=== PATIENT | female | born 1990 | race American Indian/Alaskan Native ===

== ENCOUNTER 2017-08-18 23:48 | Inpatient (IN) | payer OTHER ==
--- NOTE | 2017-08-19 00:07 | HP ---
CIWA Score - CIWA Score Nausea/Vomitin-Mild Nausea/No Vomiting Muscle Tremors: 4-Moderate,w/Arms Extend Anxiety: 4-Mod. Anxious/Guarded Agitation: 3 Paroxysmal Sweats: No Perspiration Orientation: 0-Oriented Tacttile Disturbances: 0-None Auditory Disturbances: 0-None Visual Disturbances: 0-None Headache: 4-Moderately Severe CIWA-Ar Total Score: 16 Admission ROS S - HPI Chief Complaint: Alcohol withdrawal symptoms Allergies/Adverse Reactions: Allergies Allergy/AdvReac Type Severity Reaction Status Date / Time ibuprofen [From Motrin] Allergy Verified 08/19/17 02:01 APPLES Allergy Severe Difficulty Uncoded 08/19/17 02:01 Breathing History of Present Illness: 26 years old female with a long history of alcohol, cocaine and marijuana is admitted to detox. Patient has been in previous detox and reports 6 months of sobriety. She has medical history of asthma and Diabetes ( related , she states). Patient reports that she is not on any medication and does not monitor her blood sugar. She denies suicidal ideation. Exam Limitations: No Limitations - Ebola screening Have you traveled outside of the country in the last 21 days: No Have you had contact with anyone from an Ebola affected area: No Have you been sick,other than usual withdrawal symptoms: No Do you have a fever: No - Review of Systems Constitutional: Chills, Loss of Appetite, Malaise, Night Sweats EENT: reports: No Symptoms Reported Respiratory: reports: No Symptoms reported GI: reports: Nausea, Poor Appetite, Poor Fluid Intake, Abdominal cramping Integumentary: reports: Flushing, Sweating Neuro: reports: Headache, Tingling, Tremors Endocrine: reports: No Symptoms Reported Hematology: reports: No Symptoms Reported Psychiatric: reports: Judgement Intact, Mood/Affect Appropiate, Orientated x3 Other Systems: Reviewed and Negative Patient History - Patient Medical History Hx Anemia: No Hx Asthma: Yes Hx Chronic Obstructive Pulmonary Disease (COPD): No Hx Cancer: No Hx Cardiac Disorders: No Hx Congestive Heart Failure: No Hx Hypertension: No Hx Hypercholesterolemia: No Hx Pacemaker: No HX Cerebrovascular Accident: No Hx Seizures: No Hx Dementia: No Hx Diabetes: Yes (NO MEDS) Hx Gastrointestinal Disorders: No Hx Liver Disease: No Hx Genitourinary Disorders: No Hx Sexually Transmitted Disorders: No Hx Renal Disease (ESRD): No Hx Thyroid Disease: No Hx Human Immunodeficiency Virus (HIV): No (Negative 2016) Hx Hepatitis C: No (Negative 2016) Hx Depression: No Hx Suicide Attempt: No Hx Bipolar Disorder: No Hx Schizophrenia: No - Patient Surgical History Past Surgical History: Yes Hx Neurologic Surgery: No Hx Cataract Extraction: No Hx Cardiac Surgery: No Hx Lung Surgery: No Hx Breast Surgery: No Hx Breast Biopsy: No Hx Abdominal Surgery: No Hx Appendectomy: No Hx Cholecystectomy: No Hx Genitourinary Surgery: No Hx Section: Yes (2012, 2014) Hx Orthopedic Surgery: No Hx Hysterectomy: No Anesthesia Reaction: No - PPD History Previous Implant?: No PPD to be Administered?: Yes - Reproductive History Patient is a Female of Child Bearing Age (11 -55 yrs old): Yes Last Menstrual Period: 07/08/17 Patient : No - Smoking Cessation Smoking history: Never smoked Have you smoked in the past 12 months: Yes Aproximately how many cigarettes per day: 5 Hx Chewing Tobacco Use: No Initiated information on smoking cessation: Yes 'Breaking Loose' booklet given: 08/19/17 - Substance & Tx. History Hx Alcohol Use: Yes (Whisky) Hx Substance Use: Yes (Cocaine, marijuana) Substance Use Type: Alcohol, Cocaine, Marijuana Hx Substance Use Treatment: Yes - Substances Abused Alcohol Route: Oral Frequency: 1-2 times per week Amount used: 1/2 pint Age of first use: 14 Date of Last Use: 08/18/17 Marijuana/Hashish Route: Smoking Frequency: Daily Amount used: 5 blunts Age of first use: 14 Date of Last Use: 08/18/17 Cocaine Route: Inhalation Frequency: 1-2 times per week Amount used: 1 gram Age of first use: 17 Date of Last Use: 08/18/17 Family Disease History - Family Disease History Family Disease History: Heart Disease: Father (Heart attack -), Mother ( HTN, Asthma ), Respiratory: Mother Admission Physical Exam S - Vital Signs Vital Signs: Vital Signs - 24 hr 08/18/17 23:58 Temperature 98.1 F Pulse Rate 80 Respiratory 18 Rate Blood Pressure 130/78 - Physical General Appearance: Yes: Moderate Distress, Tremorous, Irritable, Sweating, Anxious HEENTM: Yes: Normal ENT Inspection, Normal Voice Respiratory: Yes: Lungs Clear, Normal Breath Sounds, No Respiratory Distress Neck: Yes: Supple Breast: Yes: Breast Exam Deferred Cardiology: Yes: Regular Rhythm, Regular Rate, S1, S2 Abdominal: Yes: Normal Bowel Sounds, Soft, Other (C- section surgical scar) Genitourinary: Yes: Within Normal Limits Back: Yes: Within Normal Limits Musculoskeletal: Yes: Back pain, Muscle Pain, Muscle weakness Extremities: Yes: Tremors, Swelling Neurological: Yes: Alert Integumentary: Yes: Dry Lymphatic: Yes: Within Normal Limits - Diagnostic (1) Alcohol dependence with uncomplicated withdrawal Current Visit: Yes Status: Chronic (2) Cannabis dependence, uncomplicated Current Visit: Yes Status: Chronic (3) Cocaine dependence, uncomplicated Current Visit: Yes Status: Chronic (4) Asthma Current Visit: Yes Status: Chronic (5) Diabetes Current Visit: No Status: Chronic Qualifiers: Diabetes mellitus type: type 2 Cleared for Admission [facility] - Detox or Rehab [facility] Level of Care: Medically Managed Detox Regimen/Protocol: Librium [facility] Breath Alcohol Content Breath Alcohol Content: 0 Urine Pregancy Test - Result Urine Test Results: Negative- NO Line Present Urine Drug Screen - Results Drug Screen Negative: No Urine Drug Screen Results: THC-Marijuana, BOROKS-Cocaine
[2017-08-19 00:08] VITALS: BMI 24.7
[2017-08-19] MEDS ORDERED: NICOTINE POLACRILEX 2 MG GUM BC PRN (00:25)
[2017-08-19] MEDS ORDERED: MAGNESIUM CITRATE 300 ML BOTTLE PO PRN (00:25)
[2017-08-19] MEDS ORDERED: MAG HYDROX/AL HYDROX/SIMETH 30 ML UNIT-DOSE CUP PO PRN (00:25)
[2017-08-19] MEDS ORDERED: MENTHOL/PHENOL 1 EACH UD MM PRN (00:25)
[2017-08-19] MEDS ORDERED: ACETAMINOPHEN 325 MG TABLET (FP) PO PRN (00:25)
[2017-08-19] MEDS ORDERED: LOPERAMIDE HCL 2 MG CAPSULE PO PRN (00:25)
[2017-08-19] MEDS ORDERED: guaiFENesin/D-METHORPHAN HB 10 ML UNIT-DOSE CUPS PO PRN (00:25)
[2017-08-19] MEDS ORDERED: MAGNESIUM HYDROX 2400MG/30ML ORAL SUSPENSION 30 ML CUP PO PRN (00:25)
[2017-08-19] MEDS ORDERED: chlordiazePOXIDE HCL 25 MG CAPSULE PO ONE (00:25)
[2017-08-19] MEDS ORDERED: P-EPHED 60MG/TRIPROLIDI 2.5MG TABLET PO PRN (00:25)
[2017-08-19] MEDS ORDERED: chlordiazePOXIDE HCL 25 MG CAPSULE PO PRN (00:25)
[2017-08-19] MEDS: chlordiazePOXIDE HCL 25 MG CAPSULE PO SCH ×4 (05:33→22:28)
[2017-08-19 09:55] LABS: URINE APPEARANCE SLCLOUDY; URINE BILIRUBIN NEGATIVE (NEGATIVE); URINE BLOOD NEGATIVE (NEGATIVE); URINE COLOR LTYELLOW; URINE GLUCOSE (UA) NEGATIVE (NEGATIVE); URINE KETONE NEGATIVE (NEGATIVE); URINE NITRITE NEGATIVE (NEGATIVE); URINE PROTEIN NEGATIVE (NEGATIVE); URINE UROBILINOGEN NEGATIVE mg/dL (0.2-1.0)
[2017-08-19 10:10] LABS: MEAN PLT VOLUME 8.6 fl (7.5-11.1)
[2017-08-19 10:12] LABS: MCH 29.5 pg (25.7-33.7); MEAN CELL VOLUME 86.8 fl (80-96); PLATELET COUNT 231 K/MM3 (134-434); RDW 13.9 % (11.6-15.6)
[2017-08-19 10:40] LABS: ALBUMIN 3.5 g/dl (3.4-5.0); ANION GAP 6 (8-16); BILIRUBIN,TOTAL 0.4 mg/dL (0.2-1.0); CALCIUM 8.3 mg/dL (8.5-10.1); CO2 24 mmol/L (21-32); CREATININE 0.5 mg/dL (0.55-1.02); GLUCOSE,RANDOM 89 mg/dL (74-106); SGOT/AST 9 U/L (15-37); TOT PROT 6.5 g/dl (6.4-8.2)
[2017-08-19] MEDS: PRENATAL VITAMINS W/ FOLIC ACID TABLET (FP) PO SCH (10:40)
[2017-08-19] MEDS: NICOTINE 14 MG/24 HOURS TOPICAL PATCH TD SCH (10:41)
[2017-08-19 10:49] LABS: ALK PHOS 47 U/L (45-117); SGPT/ALT 22 U/L (12-78)
[2017-08-19 12:34] LABS: HIV 1 & 2 AB NEGATIVE; HIV 1 AGp24 NEGATIVE
[2017-08-19 14:27] LABS: URINE LEUK ESTERASE TRACE (NEGATIVE)
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
[2017-08-19] MEDS: ZOLPIDEM TARTRATE 5 MG TABLET PO PRN (22:27)
[2017-08-19] MEDS: THIAMINE HCL 100 MG TABLET (FP) PO SCH (22:27)
[2017-08-20] MEDS: chlordiazePOXIDE HCL 25 MG CAPSULE PO SCH ×4 (05:41→22:31)
[2017-08-20] MEDS: PRENATAL VITAMINS W/ FOLIC ACID TABLET (FP) PO SCH (10:50)
[2017-08-20] MEDS: NICOTINE 14 MG/24 HOURS TOPICAL PATCH TD SCH (10:51)
[2017-08-20] MEDS ORDERED: ALBUTEROL SO4 18 GM HFA INHALER IH PRN ×3 (11:18→16:05)
--- NOTE | 2017-08-20 11:28 | PN ---
S CIWA - CIWA Score Nausea/Vomitin Muscle Tremors: 3 Anxiety: 3 Agitation: 2 Paroxysmal Sweats: 1-Minimal Palms Moist Orientation: 0-Oriented Tacttile Disturbances: 1-Very Mild Itch/Numbness Auditory Disturbances: 1-Very Mild Visual Disturbances: 0-None Headache: 2-Mild CIWA-Ar Total Score: 16 BHS Progress Note (SOAP) Subjective: alert,irritable,anxious,interrupted sleep,tremor,depress,history of ptsd Objective: 08/20/17 11:25 Vital Signs Temperature 98.2 F 08/20/17 09:53 Pulse Rate 92 H 08/20/17 09:53 Respiratory Rate 6 L 08/20/17 09:53 Blood Pressure 114/68 08/20/17 09:53 O2 Sat by Pulse Oximetry (%) 08/20/17 11:26 Laboratory Last Values WBC 6.0 K/mm3 (4.0-10.0) 08/19/17 07:45 RBC 4.47 M/mm3 (3.60-5.2) 08/19/17 07:45 Hgb 13.2 GM/dL (10.7-15.3) 08/19/17 07:45 Hct 38.8 % (32.4-45.2) 08/19/17 07:45 MCV 86.8 fl (80-96) 08/19/17 07:45 MCH 29.5 pg (25.7-33.7) 08/19/17 07:45 MCHC 34.0 g/dl (32.0-36.0) 08/19/17 07:45 RDW 13.9 % (11.6-15.6) 08/19/17 07:45 Plt Count 231 K/MM3 (134-434) 08/19/17 07:45 MPV 8.6 fl (7.5-11.1) D 08/19/17 07:45 Manual Slide Review No Result Required. 08/19/17 07:45 Sodium 140 mmol/L (136-145) 08/19/17 07:45 Potassium 3.7 mmol/L (3.5-5.1) 08/19/17 07:45 Chloride 110 mmol/L (98-107) H 08/19/17 07:45 Carbon Dioxide 24 mmol/L (21-32) 08/19/17 07:45 Anion Gap 6 (8-16) L 08/19/17 07:45 BUN 9 mg/dL (7-18) 08/19/17 07:45 Creatinine 0.5 mg/dL (0.55-1.02) L D 08/19/17 07:45 Creat Clearance w eGFR > 60 (>60) 08/19/17 07:45 POC Glucometer 100 UNITS (80-120) 08/20/17 06:43 Random Glucose 89 mg/dL (74-106) D 08/19/17 07:45 Calcium 8.3 mg/dL (8.5-10.1) L 08/19/17 07:45 Total Bilirubin 0.4 mg/dL (0.2-1.0) D 08/19/17 07:45 AST 9 U/L (15-37) L D 08/19/17 07:45 ALT 22 U/L (12-78) D 08/19/17 07:45 Alkaline Phosphatase 47 U/L (45-117) D 08/19/17 07:45 Total Protein 6.5 g/dl (6.4-8.2) 08/19/17 07:45 Albumin 3.5 g/dl (3.4-5.0) 08/19/17 07:45 Urine Color Ltyellow 08/19/17 08:25 Urine Appearance Slcloudy 08/19/17 08:25 Urine pH 6.0 (5.0-8.0) 08/19/17 08:25 Ur Specific [place] 1.013 (1.001-1.035) 08/19/17 08:25 Urine Protein Negative (NEGATIVE) 08/19/17 08:25 Urine Glucose (UA) Negative (NEGATIVE) 08/19/17 08:25 Urine Ketones Negative (NEGATIVE) 08/19/17 08:25 Urine Blood Negative (NEGATIVE) 08/19/17 08:25 Urine Nitrite Negative (NEGATIVE) 08/19/17 08:25 Urine Bilirubin Negative (NEGATIVE) 08/19/17 08:25 Urine Urobilinogen Negative mg/dL (0.2-1.0) 08/19/17 08:25 Ur Leukocyte Esterase Trace (NEGATIVE) H 08/19/17 08:25 HIV 1&2 Antibody Screen Negative 08/19/17 07:45 HIV P24 Antigen Negative 08/19/17 07:45 Assessment: 08/20/17 11:27 withdrawal symptom Plan: continue detox,psychiatric reevaluation
[2017-08-20] MEDS: ZOLPIDEM TARTRATE 5 MG TABLET PO PRN (22:29)
[2017-08-20] MEDS: THIAMINE HCL 100 MG TABLET (FP) PO SCH (22:29)
[2017-08-21] MEDS: chlordiazePOXIDE 5 MG CAPSULE PO SCH ×4 (05:45→22:45)
[2017-08-21] MEDS: PRENATAL VITAMINS W/ FOLIC ACID TABLET (FP) PO SCH (10:42)
[2017-08-21] MEDS: hydrOXYzine PAMOATE 50 MG CAPSULE (FP) PO PRN (10:44)
[2017-08-21] MEDS: NICOTINE 14 MG/24 HOURS TOPICAL PATCH TD SCH (10:45)
--- NOTE | 2017-08-21 11:46 | PN ---
[facility] CIWA - CIWA Score Nausea/Vomitin-No Nausea/No Vomiting Muscle Tremors: 4-Moderate,w/Arms Extend Anxiety: 4-Mod. Anxious/Guarded Agitation: 4-Moderately Restless Paroxysmal Sweats: 3 Orientation: 0-Oriented Tacttile Disturbances: 0-None Auditory Disturbances: 0-None Visual Disturbances: 0-None Headache: 0-None Present CIWA-Ar Total Score: 15 BHS Progress Note (SOAP) Subjective: agitation anxiety sweats chills depressed I need to see the psych Objective: 08/21/17 11:45 Vital Signs Temperature 98.1 F 08/21/17 09:41 Pulse Rate 99 H 08/21/17 09:41 Respiratory Rate 18 08/21/17 09:41 Blood Pressure 122/75 08/21/17 09:41 O2 Sat by Pulse Oximetry (%) Laboratory Tests 08/19/17 08/19/17 08/19/17 07:45 07:45 07:45 WBC 6.0 RBC 4.47 Hgb 13.2 Hct 38.8 MCV 86.8 MCH 29.5 MCHC 34.0 RDW 13.9 Plt Count 231 MPV 8.6 D Manual Slide Review No Result Required. Sodium 140 Potassium 3.7 Chloride 110 H Carbon Dioxide 24 Anion Gap 6 L BUN 9 Creatinine 0.5 L D Creat Clearance w eGFR > 60 POC Glucometer Random Glucose 89 D Calcium 8.3 L Total Bilirubin 0.4 D AST 9 L D ALT 22 D Alkaline Phosphatase 47 D Total Protein 6.5 Albumin 3.5 Urine Color Urine Appearance Urine pH Ur Specific [place] Urine Protein Urine Glucose (UA) Urine Ketones Urine Blood Urine Nitrite Urine Bilirubin Urine Urobilinogen Ur Leukocyte Esterase RPR Titer HIV 1&2 Antibody Screen Negative HIV P24 Antigen Negative 08/19/17 08/19/17 08/20/17 08:25 16:37 06:00 WBC RBC Hgb Hct MCV MCH MCHC RDW Plt Count MPV Manual Slide Review Sodium Potassium Chloride Carbon Dioxide Anion Gap BUN Creatinine Creat Clearance w eGFR POC Glucometer 81 Random Glucose Calcium Total Bilirubin AST ALT Alkaline Phosphatase Total Protein Albumin Urine Color Ltyellow Urine Appearance Slcloudy Urine pH 6.0 Ur Specific [place] 1.013 Urine Protein Negative Urine Glucose (UA) Negative Urine Ketones Negative Urine Blood Negative Urine Nitrite Negative Urine Bilirubin Negative Urine Urobilinogen Negative Ur Leukocyte Esterase Trace H RPR Titer Nonreactive HIV 1&2 Antibody Screen HIV P24 Antigen 08/20/17 08/20/17 08/21/17 06:43 16:32 06:17 WBC RBC Hgb Hct MCV MCH MCHC RDW Plt Count MPV Manual Slide Review Sodium Potassium Chloride Carbon Dioxide Anion Gap BUN Creatinine Creat Clearance w eGFR POC Glucometer 100 99 96 Random Glucose Calcium Total Bilirubin AST ALT Alkaline Phosphatase Total Protein Albumin Urine Color Urine Appearance Urine pH Ur Specific [place] Urine Protein Urine Glucose (UA) Urine Ketones Urine Blood Urine Nitrite Urine Bilirubin Urine Urobilinogen Ur Leukocyte Esterase RPR Titer HIV 1&2 Antibody Screen HIV P24 Antigen aaox3 ambulating no acute distress Assessment: 08/21/17 11:45 withdrawal sx Plan: continue detox increase fluids psych ordered
[2017-08-21] MEDS ORDERED: HALOPERIDOL 2 MG TABLET PO STA (13:51)
[2017-08-21] MEDS ORDERED: diphenhydrAMINE HCL 50 MG CAPSULE PO STA (13:52)
[2017-08-21] MEDS ORDERED: HALOPERIDOL 1 MG TABLET (FP) PO PRN (13:53)
--- NOTE | 2017-08-21 13:59 | PN ---
Psychiatric Progress Note Vital Signs: Vital Signs Period Temp Pulse Resp BP Sys/Tarn Pulse Ox Last 24 Hr 96.4 F-98.2 F 81-99 16-20 97-122/63-75 Date of Session: 08/21/17 Chief Complaint:: Paranoid ideation, agitation, anxiety HPI: Patent reports agitation, paranoid thoughts and irritability and asking for medical aids Current Medications: Active Medications Generic Name Dose Route Start Last Admin Trade Name Freq PRN Reason Stop Dose Admin Acetaminophen 650 mg 08/19/17 00:25 Tylenol - PO Q4H PRN FEVER OR PAIN Al Hydroxide/Mg Hydroxide 30 ml 08/19/17 00:25 Mylanta Oral Suspension - PO Q6H PRN DYSPEPSIA Albuterol Sulfate 2 puff 08/20/17 16:04 Ventolin Hfa Inhaler - IH Q4H PRN ASTHMA Chlordiazepoxide HCl 15 mg 08/21/17 05:00 08/21/17 10:43 Librium - PO 08/21/17 23:01 15 mg [id number] JULI Administration Chlordiazepoxide HCl 25 mg 08/19/17 00:25 Librium - PO 08/22/17 00:24 Q4H PRN WITHDRAWAL(CONT SUBST) Chlordiazepoxide HCl 10 mg 08/22/17 05:00 Librium - PO 08/22/17 23:01 [id number] JULI Diphenhydramine HCl 50 mg 08/21/17 13:52 Benadryl - PO 08/21/17 13:53 NOW STA Eucalyptus/Menthol/Phenol/Sorbitol 1 each 08/19/17 00:25 Cepastat Lozenge - MM Q4H PRN SORE THROAT Guaifenesin 10 ml 08/19/17 00:25 Robitussin Dm - PO Q6H PRN COUGH Haloperidol 2 mg 08/21/17 13:51 Haldol - PO 08/21/17 13:52 NOW STA Haloperidol 1 mg 08/21/17 13:53 Haldol - PO Q4HWA PRN AGITATION Hydroxyzine Pamoate 50 mg 08/19/17 00:25 08/21/17 10:44 Vistaril - PO 50 mg Q4H PRN Administration AGITATION Loperamide HCl 4 mg 08/19/17 00:25 Imodium - PO Q6H PRN DIARRHEA Magnesium Citrate 300 ml 08/19/17 00:25 Citroma - PO Q48H PRN CONSTIPATION Magnesium Hydroxide 30 ml 08/19/17 00:25 Milk Of Magnesia - PO DAILY PRN CONSTIPATION Nicotine 14 mg 08/19/17 10:00 08/21/17 10:45 Nicoderm Patch - TD Not Given DAILY JULI Nicotine Polacrilex 2 mg 08/19/17 00:25 Nicorette Gum - BC Q2H PRN NICOTINE REPLACEMENT RX Multivit/Folic Acid/Iron 1 tab 08/19/17 10:00 08/21/17 10:42 Vitamins (Sjr) - PO 1 tab DAILY JULI Administration Pseudoephedrine/Triprolidine 1 combo 08/19/17 00:25 Actifed - PO TID PRN NASAL CONGESTION Thiamine HCl 100 mg 08/19/17 22:00 08/20/17 22:29 Vitamin B1 - PO 100 mg HS JULI Administration Zolpidem Tartrate 10 mg 08/19/17 22:00 08/20/17 22:29 Ambien - PO 10 mg HS PRN Administration INSOMNIA Medication(s) Change(s): Haldol 2mg po stat. Benadryl 50mg po stat. Haldol 1mg po prn q4 for anxiety Mental Status Exam - Mental Status Exam Alert and Oriented to: Person Cognitive Function: Fair Patient Appearance: Unkempt Mood: Anxious Affect: Appropriate Patient Behavior: Cooperative Speech Pattern: Appropriate Voice Loudness: Normal Thought Process: Goal Oriented Thought Disorder: Being Controlled, Paranoid Ideation Hallucinations: Denies Suicidal Ideation: Denies Homicidal Ideation: Denies Insight/Judgement: Fair Sleep: Difficulty falling asleep Appetite: Weight gain Muscle strength/Tone: Normal Gait/Station: Normal Additional Comments: Haldol 2mg po stat. Benadryl 50mg po stat. Haldol 1mg po prn q4 for anxiety Psychiatric Treatment Plan - Problem List (1) Nicotine dependence Current Visit: Yes Qualifiers: Nicotine product type: cigarettes Substance use status: uncomplicated Qualified Code(s): F17.210 - Nicotine dependence, cigarettes, uncomplicated (2) Substance induced mood disorder Current Visit: Yes (3) Alcohol dependence with uncomplicated withdrawal Current Visit: Yes (4) Cannabis dependence, uncomplicated Current Visit: Yes (5) Cocaine dependence, uncomplicated Current Visit: Yes Initial treatment plan: Haldol 2mg po stat. Benadryl 50mg po stat. Haldol 1mg po prn q4 for anxiety
[2017-08-21] MEDS ORDERED: HALOPERIDOL 1 MG TABLET (FP) PO STA (14:11)
[2017-08-21] MEDS: THIAMINE HCL 100 MG TABLET (FP) PO SCH (22:46)
--- NOTE | 2017-08-22 01:03 | EKG ---
Test Reason : Blood Pressure : / mmHG Vent. Rate : 069 BPM Atrial Rate : 069 BPM P-R Int : 154 ms QRS Dur : 084 ms QT Int : 408 ms P-R-T Axes : 058 054 040 degrees QTc Int : 437 ms NORMAL SINUS RHYTHM NORMAL ECG WHEN COMPARED WITH ECG OF 19-AUG-2017 01:50, NO SIGNIFICANT CHANGE WAS FOUND Confirmed by MAGNUS OHARA MD ([id number]) on 08/22/2017 1:03:33 AM Referred By: Dustin Garcia Confirmed By:MAGNUS OHARA MD
[2017-08-22] MEDS: chlordiazePOXIDE HCL 10 MG CAPSULE PO SCH ×2 (05:29→10:03)
[2017-08-22 06:41] VITALS: BP 110/75; PULSE 93; TEMP 97.5
--- NOTE | 2017-08-22 09:00 | DS ---
[facility] Detox Discharge Summary Admission Date: 08/19/17 Discharge Date: 08/22/17 - History Present History: Alcohol Dependence, Cannabis Dependence, Cocaine Dependence - Physical Exam Results Vital Signs: Vital Signs Temperature 97.5 F L 08/22/17 06:00 Pulse Rate 93 H 08/22/17 06:00 Respiratory Rate 16 08/22/17 06:00 Blood Pressure 110/75 08/22/17 06:00 O2 Sat by Pulse Oximetry (%) - Treatment Hospital Course: Detox Protocol Followed, Detoxed Safely, Responded well, Discharged Condition Good, Rehab Referral Accepted - Medication Discharge Medications: Ambulatory Orders Albuterol Sulfate Inhaler - [Ventolin Hfa Inhaler -] 2 puff IH PRN 08/19/17 - Diagnosis (1) Alcohol dependence with uncomplicated withdrawal Current Visit: Yes Status: Chronic (2) Cannabis dependence, uncomplicated Current Visit: Yes Status: Chronic (3) Cocaine dependence, uncomplicated Current Visit: Yes Status: Chronic (4) Insomnia Current Visit: Yes Status: Acute (5) Nicotine dependence Current Visit: Yes Status: Chronic Qualifiers: Nicotine product type: cigarettes Substance use status: uncomplicated Qualified Code(s): F17.210 - Nicotine dependence, cigarettes, uncomplicated (6) Substance induced mood disorder Current Visit: Yes Status: Acute (7) Asthma Current Visit: Yes Status: Chronic (8) Normal Current Visit: No Status: Acute (9) Viral illness Current Visit: No Status: Acute (10) Diabetes Current Visit: No Status: Chronic Qualifiers: Diabetes mellitus type: type 2 - AMA Did Patient Leave Against Medical Advice: No
[2017-08-22] MEDS: PRENATAL VITAMINS W/ FOLIC ACID TABLET (FP) PO SCH (09:17)
[2017-08-22] MEDS: hydrOXYzine PAMOATE 50 MG CAPSULE (FP) PO PRN (09:17)
[2017-08-22] MEDS: NICOTINE 14 MG/24 HOURS TOPICAL PATCH TD SCH (09:18)
== END 2017-08-22 10:08 | disposition home or self-care (01) | DRG 774 ==
LOC: YASAS 23:48 → Y6N 08-19 00:58
PROVIDERS: ADMIT Internal Medicine; ATTEND Internal Medicine
PROC: HZ2ZZZZ Detoxification Services for Substance Abuse Treatment (ICD-10-PCS; principal; 2017-08-19)
DX: F10.230 Alcohol dependence with withdrawal, uncomplicated (principal); F14.20 Cocaine dependence, uncomplicated; F12.20 Cannabis dependence, uncomplicated; F17.210 Nicotine dependence, cigarettes, uncomplicated; F19.24 Other psychoactive substance dependence with psychoactive substance-induced mood disorder; G47.00 Insomnia, unspecified; J45.909 Unspecified asthma, uncomplicated; B34.9 Viral infection, unspecified; Z88.6 Allergy status to analgesic agent; Z91.018 Allergy to other foods
CPT/HCPCS: 36415; 80053; 81003; 81015; 85027; 86593; 87389; 93005; 93010